=== PATIENT | male | born 2005 | race Caucasian/White ===

== ENCOUNTER 2023-03-19 14:55 | Emergency (ER) | payer OTHER, SELFPAY ==
[2023-03-19 14:55] VITALS: BP 159/73
[2023-03-19 15:09] VITALS: BP 159/73; PULSE 105; RESP 16; TEMP 36.9; O2SAT 98; BMI 16.0
--- NOTE | 2023-03-19 15:10 | ECG_ITS ---
[facility] Test Date: 2023-03-19 Pat Name: NOEL FRANKS Department: Room: - Gender: Male Unit Manager Rn: : 2005 Requested By: Order Number: [id number] Reading MD: KARLOS HOLMAN Measurements Intervals [place] Rate: 88 P: 63 MS: 130 QRS: -30 QRSD: 92 T: 31 QT: 340 QTc: 386 Interpretive Statements 1100 Sinus rhythm 7202 Moderate left axis deviation 9110 normal ECG No previous ECG available for comparison Electronically Signed On 03-20-2023 7:14:49 EDT by KARLOS HOLMAN
--- NOTE | 2023-03-19 15:23 | PC.NURSE ---
Pt states he has been admitted to many different mental health facilities and is cooperative with getting in a hospital throw away scrubs and states he is very hungry and thirsty. Water and snacks provided at this time and TV turned on per pt request. Security is in room at this time. Pt calm and cooperative. Lab in to draw pt at this time. States he cannot urinate at this time as he has had nothing to drink in a long time.
--- NOTE | 2023-03-19 15:35 | PC.NURSE ---
Dr. Morales ordered pt to be a one on one pt. Ke SALCEDO will be sitting with pt at this time. Pt resting comfortably in bed watching tv at this time.
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
[2023-03-19 15:45] LABS: Basophils Absolute Auto 0.1 10^3/uL (0.0-0.1); Basophils Percent Auto 1.4 % (0.2-2.0); Eosinophils Absolute Auto 0.3 10^3/uL (0.0-0.7); Eosinophils Percent Auto 4.1 % (0.9-7.0); Hematocrit 42.1 % (42.0-54.0); Hemoglobin 14.1 g/dL (14.0-18.0); Immature Granulocytes Abs Auto 0.01 10^3/uL (0.00-0.03); Immature Granulocytes Pct Auto 0.1 % (0.0-0.5); Lymphocytes Absolute Auto 2.5 10^3/uL (1.2-3.8); Lymphocytes Percent Auto 35.5 % (20.5-60.0); Mean Corpuscular HGB Conc 33.5 g/dL (29.9-35.2); Mean Corpuscular Hemoglobin 31.5 pg (25.9-34.0); Mean Platelet Volume 9.6 fL (9.5-13.5); Monocytes Absolute Auto 0.9 10^3/uL (0.3-0.8); Monocytes Percent Auto 12.2 % (1.7-12.0); Neutrophils Absolute Auto 3.3 10^3/uL (1.4-6.5); Neutrophils Percent Auto 46.7 % (43.0-75.0); Platelet Count 242 10^3/uL (150-450); Red Blood Count 4.48 10^6/uL (4.70-6.10); Red Cell Distribution Width 12.9 % (11.0-15.0); White Blood Count 7.1 10^3/uL (4.0-11.0)
[2023-03-19] MEDS: LORAZEPAM 1 MG TABLET 2 MG PO (15:46)
[2023-03-19 16:02] LABS: Alanine Aminotransferase 29 U/L (16-63); Albumin Level 3.9 g/dL (3.4-5.0); Alkaline Phosphatase 70 U/L (46-116); Anion Gap 4.7; Aspartate Amino Transferase 19 U/L (15-37); BUN Creatinine Ratio 9.5; Bilirubin Total 0.6 mg/dL (0.2-1.0); Calcium 8.8 mg/dL (8.5-10.1); Chloride 101 mmol/L (98-107); Estimated GFR (African America >60 (>=60); Estimated GFR (Non-African Ame >60 (>=60); Ethanol <3 mg/dL; Glucose 81 mg/dL (74-106); Potassium 3.7 mmol/L (3.5-5.1); Salicylate <2.8 mg/dL (<=19.9); Sodium 135 mmol/L (136-145); Total Protein 7.3 g/dL (6.4-8.2)
[2023-03-19 16:03] LABS: Albumin Globulin Ratio 1.1; Globulin 3.4 g/dL
[2023-03-19 16:04] LABS: Acetaminophen <2.0 ug/mL (10.0-30.0)
[2023-03-19 22:12] LABS: Bilirubin Urine NEGATIVE (NEGATIVE); Blood Urine NEGATIVE (NEGATIVE); Clarity Urine CLEAR (CLEAR); Color Urine LT. YELLOW (YELLOW); Glucose Urine UA NEGATIVE (NEGATIVE); Ketones Urine NEGATIVE (NEGATIVE); Leukocyte Esterase Urine TRACE (NEGATIVE); Nitrite Urine NEGATIVE (NEGATIVE); Protein Urine NEGATIVE (NEG/TRACE); Specific Gravity Urine <=1.005 (1.005-1.025); Urobilinogen Urine 0.2 EU/dL (0.2-1.0)
[2023-03-19 22:23] LABS: Urine Microscopic Indicated YES
[2023-03-19 22:24] LABS: Bacteria Urine TRACE #/HPF (NONE SEEN); Cast Seen? NONE SEEN #/LPF (NONE SEEN); Crystals Seen? None Seen #/HPF (None Seen); Mucus Urine NONE SEEN (NONE SEEN); RBC Urine 0-2 #/HPF (0-2); Squamous Epithelial Cell Urine FEW #/LPF (NONE/RARE)
[2023-03-19 22:25] LABS: Urine Culture Indicated YES
[2023-03-19 22:26] LABS: Amphetamine Screen Urine POSITIVE (NEGATIVE); Barbiturates Screen Urine NEGATIVE (NEGATIVE); Benzodiazepines Screen Urine POSITIVE (NEGATIVE); Buprenorphine Screen Urine NEGATIVE (NEGATIVE); Cannabinoid Screen Urine POSITIVE (NEGATIVE); Cocaine Screen Urine POSITIVE (NEGATIVE); Methadone Screen Urine NEGATIVE (NEGATIVE); Methamphetamines Screen Urine POSITIVE (NEGATIVE); Oxycodone Screen Urine NEGATIVE (NEGATIVE); Phencyclidine Screen Urine NEGATIVE (NEGATIVE); Tricyclic Antidepressant Urine NEGATIVE (NEGATIVE)
[2023-03-19 22:27] LABS: Opiate Screen Urine NEGATIVE (NEGATIVE)
[2023-03-19 23:25] LABS: SARS-CoV-2 Ag NEGATIVE (NEGATIVE)
[2023-03-19 23:44] LABS: Creatine Kinase 172 U/L (39-308); Creatine Kinase MB 1.46 ng/mL (<=3.60)
[2023-03-20 06:09] VITALS: RESP 14; O2SAT 98
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
[2023-03-20] MEDS: HALOPERIDOL LACTATE 5 MG/ML VIAL IM (12:15)
[2023-03-20] MEDS: LORAZEPAM 2 MG/ML 1 ML VIAL IM (12:15)
[2023-03-20 13:22] VITALS: PULSE 64; RESP 14; O2SAT 100
[2023-03-20] MEDS: LORAZEPAM 2 MG/ML 1 ML VIAL 1 MG IM ×2 (15:20→17:19)
[2023-03-20 17:20] VITALS: PULSE 64; O2SAT 100
== END 2023-03-20 17:45 ==
PROVIDERS: Emergency Medicine; Emergency Provider Internal Medicine
DX: R45.850 Homicidal ideations (principal); F19.959 Other psychoactive substance use, unspecified with psychoactive substance-induced psychotic disorder, unspecified; Z20.822 Contact with and (suspected) exposure to COVID-19
CPT/HCPCS: 36415; 80053; 80179; 80307; 80320; 80329; 81001; 82550; 82553; 85025; 87086; 87635; 87811; 93005; 96372; 96374; 99285